=== PATIENT | male | born 1950 | race Caucasian/White ===

== ENCOUNTER 2018-10-09 20:02 | Emergency (ER) | payer MEDICARE, OTHER ==
[2018-10-09] MEDS ORDERED: ASPIRIN 81 MG CHEWABLE TAB PO ONE (20:09)
[2018-10-09] MEDS ORDERED: PANTOPRAZOLE SODIUM 40 MG TAB PO ONE (20:27)
[2018-10-09] MEDS ORDERED: MAG HYDROX/AL HYDROX/SIMETH 30 ML UDCUP PO ONE (20:27)
--- NOTE | 2018-10-09 20:47 | EDPHY ---
H & P Stated Complaint: states last 2 mornings awakened at 3am w/sharp r chest pain Time Seen by Provider: 10/09/18 20:08 HPI/ROS: This patient describes sharp right-sided chest pain at night the last 2 nights that awakened him from sleep at around 4:45 a.m. In the morning. He described it as worse with a deep breath in fact felt that he could get a full breath early this morning due to the severity of the pain when he attempted to. Peak intensity to was 10/10. However he noted that when he stood upright symptoms abated within minutes. At the moment he has no chest pain. However in describing the episodes to his daughter his daughter implored him to come in to the emergency department for evaluation. He denies any other associated symptoms. No other exacerbating factors besides the positional element noted above. ROS: Constitutional: No fevers HEENT: No URI symptoms recently Pulmonary: No respiratory distress. No hemoptysis. No coughing recently. Cardiovascular: No heart palpitations or lightheadedness. No calf swelling or pain. GI: No abdominal pain. No nausea or vomiting. He has normal BMs recently : No urinary symptoms. Integumentary: No diaphoresis 10 point review of symptoms is performed and otherwise negative with exception of pertinent positives and negatives listed in HPI and ROS Source: Patient Exam Limitations: No limitations - Personal History Current Tetanus Diphtheria and Acellular Pertussis (TDAP): Yes - Medical/Surgical History Hx Asthma: No Hx Chronic Respiratory Disease: No Hx Diabetes: No Hx Cardiac Disease: No Hx Renal Disease: No Hx Cirrhosis: No Hx Alcoholism: No Hx HIV/AIDS: No Hx Splenectomy or Spleen Trauma: No - Family History Significant Family History: No pertinent family hx - Social History Smoking Status: Former smoker Alcohol Use: Occasionally (Patient had glass of wine and mixed drink today and typically drinks a few times a week.) Drug Use: Other (He reports using CBD in vaporizer occasionally to help with sleep.) - Physical Exam Exam: General Appearance: Alert, no distress. Eyes: Pupils equal and round no pallor or injection. ENT, Mouth: Mucous membranes moist. Respiratory: There are no retractions, lungs are clear to auscultation. Cardiovascular: Regular rate and rhythm. Gastrointestinal: Abdomen is soft and nontender, no masses, bowel sounds normal. Neurological: GCS 15. Skin: Warm and dry, no rashes. Musculoskeletal: Neck is supple nontender. Extremities are symmetrical, full range of motion. Psychiatric: Patient is oriented X 3, there is no agitation. DIFFERENTIAL DIAGNOSIS: After history and physical exam differential diagnosis was considered for GERD with esophagitis or esophageal spasm, pulmonary embolism , myocardial ischemic disease, aortic dissection, pneumothorax, pneumonia Constitutional: Initial Vital Signs Temperature (C) 36.6 C 10/09/18 20:10 Heart Rate 76 10/09/18 20:10 Respiratory Rate 15 10/09/18 20:10 Blood Pressure 152/85 H 10/09/18 20:10 O2 Sat (%) 97 10/09/18 20:10 O2 Delivery Mode Room Air Allergies/Adverse Reactions: No Known Allergies Allergy (Unverified 10/09/18 20:09) Home Medications: Medication Instructions Recorded Lorazepam 10/09/18 Pantoprazole Sodium [Protonix 40mg 40 mg PO DAILY #10 tab 10/09/18 (*)] Medical Decision Making - Diagnostics EKG Interpretation: 12 lead EKG performed shortly after arrival reveals sinus rhythm at 73 Intervals: Normal throughout [place]: Normal throughout ST segments: Normal throughout Overall assessment: Normal EKG Imaging Results: Imaging Impressions Chest/Thorax CTA 10/09/18 21:10 Impression: 1. No definite pulmonary thromboemboli. 2. No aortic aneurysm or dissection. 3. Right lower lobe 4 mm nonspecific nodule calcified pulmonary nodule for which follow-up noncontrast CT chest recommended in one year 22 stability. Findings and recommendations discussed with Emergency Department physician, CARLOS ALLEN at 22:07 hour, 10/09/2018. Final report concurs with initial preliminary interpretation. [employer] RECOMMENDATIONS For Follow Up and Management of Solid Nodules Smaller Than [address] Low Risk Patients (minimal or absent history of smoking and of other known risk factors) Less than 6 mm------no follow up required, unless upper lobes then follow up at 12 months 6-8 mm -------initial follow up CT at 6-12 months, then at 18-24 months if no change >8 mm -------Consider follow up CT at around 3, 9, and 24 months, dynamic contrast-enhanced CT, PET, and/or biopsy. High Risk Patients (history of smoking or of other known risk factors) Less than 6 mm------follow up CT at 12 months; if unchanged, no further follow up 6-8 mm ------ initial follow up CT at 6-12 months, then at 18-24 months if no change >8 mm ------ Consider follow up CT at around 3, 9, and 24 months, dynamic contrast-enhanced CT, PET, and/or biopsy. Note: Nonsolid (groundglass) or partially solid nodules will require a longer follow up to exclude indolent adenocarcinoma. A test result has been communicated to a licensed care provider and documented in the [employer] Critical Result system on 10/09/2018 22:08, Message ID [id number]. Imaging: Discussed imaging studies w/ rn call center Radiologist (I also reviewed the CT chest images myself.) ED Course/Re-evaluation: IV, monitor Aspirin shortly after arrival Maalox and Protonix p.o. After interview. The patient remained pain-free in stable on the monitor Studies: CBC was normal, metabolic panel normal, troponin normal, D-dimer was elevated I discussed the the this CT angio chest-negative for pulmonary embolism with an incidental finding of a right lower lobe 4 mm pulmonary nodule that warrants a [address] chest without contrast for follow-up as an outpatient. Discussion: Given that this patient had symptoms only while supine did improve when he stands up with a negative workup I suspect he has GERD with esophagitis and counseled regarding this. It seemed to have pleuritic component by his description which prompted the D-dimer. The D-dimer being elevated prompted the CT angio chest. I explained that while the D-dimer is very sensitive it is not specific. In interviewing of further and rechecking his examination he has no lower extremity swelling, calf tenderness or other clinical findings or historical details that would suggest DVT elsewhere in his body. Will plan to start him on a proton pump inhibitor, Maalox and follow up with Gastroenterology. He understands need to return emergency department should she develop any worsening of symptoms despite the treatment plan. - Data Points Laboratory Results: 10/09/18 10/09/18 20:46 20:45 POC Sodium 133 mEq/L L mEq/L (135-145) POC Potassium 3.8 mEq/L mEq/L (3.3-5.0) POC Chloride 95.0 mEq/L L mEq/L (97-110) POC Total CO2 26 mEq/L mEq/L (-) POC BUN 13 mg/dL mg/dL (7-23) POC Creatinine 0.6 mg/dL L mg/dL (0.7-1.3) POC Glucose 91 mg/dL mg/dL (70-100) POC Calcium 9.3 mg/dL mg/dL (8.5-10.4) POC Troponin I 0.00 ng/mL ng/mL (0.00-0.08) Medications Given: Discontinued Medications Al Hydroxide/Mg Hydroxide (Maalox Susp) 30 ml PO EDNOW ONE Stop: 10/09/18 20:28 Last Admin: 10/09/18 20:31 Dose: 30 ml Aspirin (Aspirin) 324 mg PO EDNOW ONE Stop: 10/09/18 20:10 Last Admin: 10/09/18 20:31 Dose: 324 mg Sodium Chloride (Ns) 1,000 mls @ 0 mls/hr IV ONCE ONE; Wide Open PRN Reason: Protocol Stop: 10/09/18 21:17 Last Admin: 10/09/18 21:16 Dose: 1,000 mls Pantoprazole Sodium (Protonix) 40 mg PO EDNOW ONE Stop: 10/09/18 20:28 Last Admin: 10/09/18 20:31 Dose: 40 mg Point of Care Test Results: CBC CBC Collection Date 10/09/18 CBC Collection Time 20:40 WBC 5.13 RBC 4.57 HGB 14.2 HCT 40.7 PLT 247 Neut # 3.28 Neut 64 LYMPH # 0.89 LYMPH 17.3 MCV 89.1 Chemistry 10/09/18 10/09/18 20:46 20:45 POC Sodium 133 mEq/L L mEq/L (135-145) POC Potassium 3.8 mEq/L mEq/L (3.3-5.0) POC Chloride 95.0 mEq/L L mEq/L (97-110) POC Total CO2 26 mEq/L mEq/L (-) POC BUN 13 mg/dL mg/dL (7-23) POC Creatinine 0.6 mg/dL L mg/dL (0.7-1.3) POC Glucose 91 mg/dL mg/dL (70-100) POC Calcium 9.3 mg/dL mg/dL (8.5-10.4) POC Troponin I 0.00 ng/mL ng/mL (0.00-0.08) D-Dimer D-Dimer Collection Date 10/09/18 D-Dimer Collection Time 20:40 D-Dimer (ng/ml) 1290 Departure - Departure Disposition: Home, Routine, Self-Care Clinical Impression: GERD with esophagitis, Chest pain, pleuritic Clinical Impression: (Ruled Out): GERD (gastroesophageal reflux disease) Condition: Good Instructions: Diet for Stomach Ulcers and Gastritis (ED), Gastroesophageal Reflux Disease (ED) Additional Instructions: Diagnosis: 1. Pleuritic chest pain 2. GERD with esophagitis-clinical diagnosis 3. Right lower lobe pulmonary nodule (4mm) Plan: Lee diet Try to have her larger meal admit day and a smaller meal at dinner. Put a 2 x 4 or two under the posts at the head of your bed to elevate it slightly and also prop your torso up with pillows while sleeping until your symptoms improve. Start Protonix or Prilosec 40 mg a day Have Maalox by the bedside in addition intake this if needed for symptoms until the acid christin-proton pump inhibitor has taken affect-typically in to 3 days. Call gastroenterology-Dr. Pickard to arrange follow-up appointment for further evaluation. If you run out of the Protonix prior to than there is a refill on this prescription. Call your primary care physician to arrange a 1 year follow-up CT chest without contrast to evaluate for any interval change in the right lung pulmonary nodule Return for any significant worsening despite the treatment plan Referrals: VAHID MOSES [Primary Care Provider] - As per Instructions Buddy Pickard MD, FACG [Medical Doctor] - As per Instructions Prescriptions: Pantoprazole Sodium [Protonix 40mg (*)] 40 mg PO DAILY #10 tab
[2018-10-09] MEDS ORDERED: ASPIRIN 81 MG CHEWABLE TAB ONE (21:13)
[2018-10-09] MEDS ORDERED: NS 1,000 ML IV ONE (21:16)
[2018-10-09] MEDS ORDERED: IOPAMIDOL (ISOVUE 370) 100 ML BTL IV ONE (21:22)
[2018-10-09 22:34] VITALS: BP 160/92
--- NOTE | 2018-10-23 07:04 | CPEKG ---
Test Reason : OPEN Blood Pressure : / mmHG Vent. Rate : 073 BPM Atrial Rate : 073 BPM P-R Int : 140 ms QRS Dur : 094 ms QT Int : 375 ms P-R-T Axes : 068 079 068 degrees QTc Int : 414 ms Sinus rhythm Confirmed by Kenney Rm ([id number]) on 10/23/2018 7:03:38 AM Referred By: Kenney Rm Confirmed By:Kenney Rm
== END 2018-10-09 22:34 | disposition home or self-care (01) ==
LOC: CED 20:02
DX: K21.0 Gastro-esophageal reflux disease with esophagitis (principal); R07.1 Chest pain on breathing; R91.1 Solitary pulmonary nodule; E86.9 Volume depletion, unspecified; Z87.891 Personal history of nicotine dependence
CPT/HCPCS: 71275; 93005; 96360; 99285; Q9967; 80048-ER; 84484-ER